=== PATIENT | male | born 1975 | race Caucasian/White ===

== ENCOUNTER 2016-12-28 18:50 | Emergency (ER) | payer SELFPAY ==
[~2016-12-28] VITALS: Ht 193 cm; Wt 100.0 kg
[~2016-12-28 18:50] MED LIST: NAPR-576 PO
[2016-12-28 18:52] VITALS: BP 135/92; PULSE 66; RESP 20; TEMP 97.8; O2SAT 100
--- NOTE | 2016-12-28 20:16 | PD ---
HPI Chief Complaint: Abdominal Pain Time Seen by Provider: 20:16 Travel History International Travel<30 days: No Contact w/Intl Traveler<30days: No Traveled to known affect area: No History of Present Illness HPI 41-year-old male came to the emergency room with history of umbilicus hernia and right ankle swelling. Patient says he has history of umbilical hernia and has had it for past 2-3 years. He is usually able to reduce it but he was doing a lot of heavy lifting today and yard work. He noticed the hernia getting bigger in size and he was unable to push it back in. He was having trouble eating or drinking the entire evening. His fiance convinced him to come to the emergency room to be checked out. He says he has seen a surgeon two and half years ago regarding the hernia but was unable to follow-up since he lost his insurance. He also noticed today that his right ankle medially was swelling up. At any connection with the hernia. He did not injure his ankle. He thinks he could have been bitten by a bug since he was outside all day. He was wearing sneakers and socks however. His vital signs are stable otherwise. [facility] Past Medical History Narrative Medical List of his past medical, surgical, social and family history is reviewed from the nursing note. Arthritis: No Asthma: No Autoimmune Disease: No Blood Disorders: No Anxiety: No Depression: No Heart Rhythm Problems: No Cancer: No Cardiovascular Problems: Yes (WPW) High Cholesterol: No Chemotherapy: No Chest Pain: No Congestive Heart Failure: No COPD: No Cerebrovascular Accident: No Diabetes: No Diminished Hearing: No Endocrine: No GERD: No Glaucoma: No Genitourinary: No Headaches: No Hepatitis: No Hiatal Hernia: No Hypertension: No Immune Disorder: No Kidney Stones: No Musculoskeletal: No Neurologic: No Psychiatric: No Reproductive: No Respiratory: No Migraines: No Myocardial Infarction: No Radiation Therapy: No Renal Failure: No Seizures: No Sickle Cell Disease: No Sleep Apnea: No Thyroid Disease: No Ulcer: No Tetanus Vaccination: > 5 Years Influenza Vaccination: No Past Surgical History Abdominal Surgery: Yes (APPENDECTOMY WHEN HE WAS 14 YRS OLD) AICD: No Appendectomy: No Arteriovenous Shunt: No 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 Reported Meds & Prescriptions Reported Meds & Active Scripts Active Keflex (Cephalexin) 500 Mg Cap 500 Mg PO Q8H Narrative Medication List of his home medications reviewed from the nursing note. Review of Systems Except as stated in HPI: all other systems reviewed are Neg Physical Exam Narrative GENERAL: Awake, alert, no obvious distress SKIN: Focused skin assessment warm/dry. Medial aspect of his right ankle is swollen and warm to touch. There is slight erythema. Good range of motion. Distal pulses present HEAD: Atraumatic. Normocephalic. EYES: Pupils equal and round. No scleral icterus. No injection or drainage. ENT: No nasal bleeding or discharge. Mucous membranes pink and moist. NECK: Trachea midline. No JVD. CARDIOVASCULAR: Regular rate and rhythm. No murmur appreciated. RESPIRATORY: No accessory muscle use. Clear to auscultation. Breath sounds equal bilaterally. GASTROINTESTINAL: Abdomen soft, non-tender, nondistended. Hepatic and splenic margins not palpable. Incarcerated umbilical hernia MUSCULOSKELETAL: No obvious deformities. No clubbing. No cyanosis. No edema. NEUROLOGICAL: Awake and alert. No obvious cranial nerve deficits. Motor grossly within normal limits. Normal speech. PSYCHIATRIC: Appropriate mood and affect; insight and judgment normal. Data Data Last Documented VS Vital Signs Date Time Temp Pulse Resp B/P Pulse Ox O2 Delivery O2 Flow Rate FiO2 12/28/16 19:48 16 12/28/16 18:52 97.8 66 135/92 100 Room Air Orders Midazolam Inj (Versed Inj) (12/28/16 20:45) Cephalexin (Keflex) (12/28/16 21:15) [facility] Medical Decision Making Medical Screen Exam Complete: Yes Emergency Medical Condition: Yes Medical Record Reviewed: Yes Differential Diagnosis Incarcerated umbilical hernia, allergic reaction, cellulitis Narrative Course 9:16 PM patient had refused the ankle x-ray that was ordered. That has been canceled at this point. The hernia was successfully reduced under Versed. Please refer to my procedure note. He will get a dose of Keflex and will be discharged home after that. He has been urged to follow up with general surgeon for the hernia repair surgery. Procedures Procedure Narrative Umbilicus hernia reduction: The patient was given 4 mg of IV for said. The hernia was gently reduced by manipulation. I could feel the contents me the bowel loops going back into the intra-abdominal cavity. The hernia rhythm was palpated. The sac was empty after the reduction. Patient tolerated the procedure well. EKG Prior to Arrival: No Diagnosis Primary Impression: Umbilical hernia Qualified Code: K42.0 - Umbilical hernia with obstruction, without gangrene Additional Impression: Insect bite Qualified Code: W57.XXXA - Insect bite, initial encounter Referrals: Henry Rojo MD 2 days Primary Care Physician 2 days Additional Instructions: Please follow-up with the general surgeon whose name and number been provided to you. If you have your own surgeon you can follow-up with him or her as well. There needs to be a definitive treatment for your umbilicus hernia otherwise it is at risk for incarceration again. Take the medication as per the prescription direction for your ankle swelling. Apply ice pack to keep the swelling down. Keep the leg elevated. Med/Other Pt SpecificInfo: Prescription(s) given Scripts Cephalexin (Keflex)500 Mg [id number] Mg PO Q8H #30 CAP Ref 0 Prov:Ang Self MD 12/28/16 Disposition: 01 DISCHARGE HOME Condition: Stable Ang Self MD December 28, 2016 20:16 Ang Self MD December 28, 2016 20:16
[2016-12-28] MEDS ORDERED: MIDAZOLAM HCL 2 MG/2 ML VIAL IV PUSH ONE (20:45)
[2016-12-28] MEDS ORDERED: CEPHALEXIN MONOHYDRATE 500 MG CAP PO ONE (21:15)
[2016-12-28] MEDS ORDERED: CEPH-460 PO (21:20)
== END 2016-12-28 21:42 | disposition home or self-care (01) ==
LOC: NEPD 18:50
DX: K42.9 Umbilical hernia without obstruction or gangrene (principal); M25.471 Effusion, right ankle; W57.XXXA Bitten or stung by nonvenomous insect and other nonvenomous arthropods, initial encounter
CPT/HCPCS: 49585; 96374; 99283; J2250